=== PATIENT | female | born 2000 | race Caucasian/White ===

== ENCOUNTER 2023-04-14 08:00 | Outpatient (CLI) | payer BC ==
[2023-04-14 22:55] LABS: BACTERIAL VAGINOSIS DNA NEGATIVE (NEGATIVE); CANDIDA KRUSEI DNA NEGATIVE (NEGATIVE)
[2023-04-14 22:56] LABS: CANDIDA GLABRATA DNA NEGATIVE (NEGATIVE); CANDIDA GROUP DNA NEGATIVE (NEGATIVE); TRICHOMONAS VAGINALIS DNA NEGATIVE (NEGATIVE)
== END 2023-04-14 23:59 | disposition home or self-care (01) ==
LOC: LAB.S 08:00
PROVIDERS: ATTEND Physician Assistant Medical
DX: N76.0 Acute vaginitis (principal)
CPT/HCPCS: 81514

== ENCOUNTER 2023-08-30 18:35 | Outpatient (CLI) | payer BC, MEDICAID ==
--- NOTE | 2023-08-30 21:28 | Ultrasound Report ---
PROCEDURE: OB Anatomy Scan INDICATIONS: SUPERVISION OF OUTSIDE/PRIOR DATING DATA: Last menstrual period (LMP): 03/05/2023. LMP-based estimated date of delivery (MARGOTH): 12/10/2023. First dating scan (date and location): 05/11/2023. Estimated date of delivery (MARGOTH) from first dating scan: 12/11/2023. The below data below was generated using the ultrasound MARGOTH of 12/11/2023 TECHNIQUE: Real-time scanning was performed of the fetus, with image documentation and biometric measurements. Endovaginal scanning: Not performed. COMPARISON: None. FINDINGS: General: A single living intrauterine gestation is present. Presentation: Variable Placenta: Placental position is anterior, without previa. Amniotic fluid index: 12.8 cm, within normal limits for gestational age. heart rate: 148 beats per minute. Maternal cervical canal: 5.2 cm long; normal length is 2.5 cm or more. biometrics: Biparietal diameter: 5.9 cm, 24 weeks 1 day, 10% Head circumference: 22.8 cm, 24 weeks 6 days, 14.5% Abdominal circumference: 19.5 cm, 24 weeks 1 day, 12.3% Femur length: 4.3 cm, 24 weeks 2 days, 10.5% Estimated gestational age from initial scan: 25 weeks 2 days Composite gestational age from present scan: 24 weeks 1 day Estimated weight and percentile: 6.77 g, 8.5% Measurement variability in biometric dating: +/- 10 days from 12-20 weeks gestation, +/- 2 weeks from 20-30 weeks gestation, +/- 3 weeks at 30 weeks gestation or later. Anatomic survey: Neuro: Ventricles are normal at less than 10 mm. Cisterna magna is normal at 3-11 mm. Cerebellum i s normal in size and morphology. Nuchal skin fold: Late gestational age. Face: Nose and lips, facial profile are normal. Spine: Limited, grossly normal. Heart: The cardiac views are not well seen. Pericardial fluid is noted. The left ventricle appears gr ossly prominent. Diaphragm: Diaphragm is intact. Stomach: Left-sided stomach is present. Kidneys: No hydronephrosis. Normal is less than 5 mm in 2nd trimester, less than 7 mm in 3rd trimester. Cord: 3 vessel cord has orthotopic insertion. Bladder: Normal in size. Extremities: Left upper limits normal seen. Other extremities are visualized. Cord Doppler is at the placenta are 2.9, mid ranges from 3.2-4.9 and at the abdomen is 3.7 IMPRESSION: 1.Single live intrauterine consistent with 25 weeks and 2 days. 2.The cardiac views are not well seen. Pericardial fluid is noted. The left ventricle appears grossly prominent. Findings are suspicious for cardiac abnormality. 3.Estimated weight is 8.5%. 4.Elevated cord Dopplers as above. 5.Left upper limb and spine are not well seen. 6.Recommend short-term follow-up ultrasound. Preliminary report was given to the provider by the cardiopulmonary technologist chief. Reviewed by: Juanito Raymundo MD on 08/30/2023 9:26 PM PDT Approved by: Juanito Raymundo MD on 08/30/2023 9:26 PM PDT Station ID: [id number]
== END 2023-08-30 18:36 | disposition home or self-care (01) ==
LOC: DI 18:35
PROVIDERS: ATTEND Midwife
DX: Z34.02 Encounter for supervision of normal first pregnancy, second trimester (principal)